=== PATIENT | female | born 1955 | race Caucasian/White ===

== ENCOUNTER → 2017-01-16 | Outpatient (CLI) | payer BC | LOC: MC.RAD 11:10 | DX: Z12.31 Encounter for screening mammogram for malignant neoplasm of breast (principal) ==

== ENCOUNTER → 2018-01-05 | Outpatient (CLI) | payer BC | LOC: COL.RAD 07:20 | DX: R10.13 Epigastric pain (principal); N28.1 Cyst of kidney, acquired; N20.0 Calculus of kidney | CPT/HCPCS: J7050; Q9967 ==

== ENCOUNTER → 2018-03-02 | Outpatient (CLI) | payer BC | LOC: MC.RAD 10:42 | DX: Z12.31 Encounter for screening mammogram for malignant neoplasm of breast (principal) ==

== ENCOUNTER → 2019-04-24 | Outpatient (CLI) | payer MEDICARE, OTHER | LOC: MC.RAD 03-20 09:30 | DX: Z12.31 Encounter for screening mammogram for malignant neoplasm of breast (principal) ==

== ENCOUNTER → 2020-06-02 | Outpatient (CLI) | payer MEDICARE, OTHER | LOC: MC.RAD 15:22 | DX: Z12.31 Encounter for screening mammogram for malignant neoplasm of breast (principal) ==

== ENCOUNTER 2020-09-30 17:25 | Emergency (ER) | payer MEDICARE, OTHER ==
[~2020-09-30] VITALS: Ht 167.6 cm; Wt 77.3 kg
[2020-09-30 17:37] VITALS: BP 152/94; TEMP 98.3
[2020-09-30 17:57] LABS: BASO % 0.5 % (0.0-2.0); EOS # 0.2 (0.0-0.7); EOS % 2.1 % (0-4.0); GRAN # 4.8 (1.4-6.5); GRAN % 61.7 % (42.2-75.2); HEMATOCRIT 38.5 % (37.0-47.0); HEMOGLOBIN 13.1 g/dl (12.5-16.0); LYMPH # 2.2 (1.2-3.4); LYMPH % 28.2 % (20.0-51.0); MEAN CELL VOLUME 87 fl (80.0-100.0); MEAN CORPUSCULAR HEMOGLOBIN 30 pg (27.0-31.0); MEAN CORPUSCULAR HGB CONC 34 g/dl (33.0-37.0); MEAN PLATELET VOLUME 9.2 fl (7.4-10.4); MONO # 0.6 (0.1-0.6); MONO % 7.1 % (1.7-9.3); PLATELET COUNT 368 K/mm3 (130-400); RED BLOOD COUNT 4.44 M/mm3 (4.10-5.30); REDCELL DISTRIBUTION WIDTH-CV 12.6 % (11.5-14.5)
[2020-09-30 18:04] LABS: ALANINE AMINOTRANSFERASE 34 U/L (4-34); ALBUMIN 4.5 gm/dL (3.5-5.0); ALKALINE PHOSPHATASE 95 U/L (50-136); ANION GAP 12 mmol/L (7-16); AST,SGOT 30 U/L (15-37); BILIRUBIN,TOTAL 0.7 mg/dL (0.0-1.0); BLOOD UREA NITROGEN 22 mg/dL (7-17); CALCIUM 9.3 mg/dL (8.4-10.2); CARBON DIOXIDE 24 mmol/L (22-30); CHLORIDE 106 mmol/L (98-107); CREATININE, serum 0.84 (0.52-1.25); GLUCOSE 110 mg/dL (74-106); POTASSIUM 3.1 mmol/L (3.4-5.0); SODIUM 141 mmol/L (137-145); TOTAL PROTEIN 7.6 gm/dL (6.4-8.2)
[2020-09-30 18:39] LABS: COLLECTION METHOD CLEAN CATCH
[2020-09-30 18:46] LABS: C-REACTIVE PROTEIN < 0.5 mg/dL (0.0-0.9)
[2020-09-30 18:49] LABS: MUCOUS Present /lpf; PH 5 (5-8); URINE APPEARANCE Cloudy; URINE BACTERIA None Seen /hpf; URINE BILIRUBIN Negative (NEGATIVE); URINE BLOOD 3+ (NEGATIVE); URINE CALCIUM OXALATE CRYSTAL Present /hpf; URINE COLOR Amber; URINE GLUCOSE Negative (NEGATIVE); URINE KETONE 1+ (NEGATIVE); URINE LEUKOCYTE ESTERASE Trace (NEGATIVE); URINE NITRATE Negative (NEGATIVE); URINE PROTEIN(semi-quant) 2+ (NEGATIVE); URINE RBC >50 /hpf; URINE UROBILINOGEN Negative (NEGATIVE)
[2020-09-30] MEDS ORDERED: CEFTIN 250250 MG/TAB PO (20:12)
[2020-09-30 20:20] VITALS: PULSE 71
== END 2020-09-30 20:20 | disposition home or self-care (01) ==
LOC: COL.ER 17:25
PROVIDERS: Nurse Practitioner
DX: N39.0 Urinary tract infection, site not specified (principal); N20.0 Calculus of kidney
CPT/HCPCS: J0696; J1885; J2405; J7030; Q9967

== ENCOUNTER 2021-02-17 08:44 | Day surgery (SDC) | payer MEDICARE, OTHER ==
[~2021-02-17] VITALS: Ht 167.6 cm; Wt 114.5 kg
[~2021-02-17 08:44] MED LIST: CEFTIN 250250 MG/TAB PO
[2021-02-17] MEDS ORDERED: FOSAMAX 10M10 MG/TAB PO (09:14)
[2021-02-17] MEDS ORDERED: VITAMIN D31000 I1 PO (09:16)
[2021-02-17] MEDS ORDERED: MASON NATURAL2000 IU PO (09:20)
[2021-02-17 09:49] VITALS: BP 120/74; PULSE 73; TEMP 97.9
[2021-02-17 10:55] VITALS: BP 115/83; PULSE 63; TEMP 97.3
[2021-02-17 11:00] VITALS: BP 115/76; PULSE 63
[2021-02-17 11:15] VITALS: BP 112/80; PULSE 68
[2021-02-17 11:30] VITALS: BP 114/79; PULSE 66
--- NOTE | 2021-02-17 11:40 | NUR ---
1055 Pt returns from Endo procedure via cart. Pt ambulates from cart to recliner with RN assist. Pt denies pain or nausea, and pt alert and oriented. Monitors on and alarms set. Call light within reach. Report received from Tram. Pt requests Sprite and saltines. Dr. Garrison arrives to visit with pt and . brought to room to visit with Dr. Garrison. 1110 Dr. Garrison finished visiting with pt and . Pt taking food and drink well and states "ready for discharge." 1135 Discharge instructions given to pt and . All questions answered to their satisfaction. Handed to them are a thank you card and all discharge information and procedural photos. 1140 Pt transferred out of hospital via wheelchair and this RN to private vehicle driven by .
== END 2021-02-17 11:40 | disposition home or self-care (01) ==
LOC: SDCO 08:44
DX: Z12.11 Encounter for screening for malignant neoplasm of colon (principal); K29.50 Unspecified chronic gastritis without bleeding; D12.5 Benign neoplasm of sigmoid colon; K29.80 Duodenitis without bleeding; K21.9 Gastro-esophageal reflux disease without esophagitis; K62.89 Other specified diseases of anus and rectum; K44.9 Diaphragmatic hernia without obstruction or gangrene; E78.5 Hyperlipidemia, unspecified; M81.0 Age-related osteoporosis without current pathological fracture; D50.9 Iron deficiency anemia, unspecified; M19.90 Unspecified osteoarthritis, unspecified site; Z79.899 Other long term (current) drug therapy; Z90.89 Acquired absence of other organs; Z98.890 Other specified postprocedural states
CPT/HCPCS: J2704; J3010; J7030

== ENCOUNTER → 2021-09-14 | Outpatient (CLI) | payer MEDICARE, OTHER ==
[~2021-09-14] MED LIST changes: +FOSAMAX 10M10 MG/TAB PO; +MASON NATURAL2000 IU PO; +VITAMIN D31000 I1 PO
== END ==
LOC: MC.RAD 08:34
DX: Z12.31 Encounter for screening mammogram for malignant neoplasm of breast (principal)

== ENCOUNTER → 2023-02-09 | Outpatient (CLI) | payer MEDICARE, OTHER | LOC: MC.RAD 12:48 | DX: N60.02 Solitary cyst of left breast (principal) ==

== ENCOUNTER 2023-12-24 21:50 | Emergency (ER) | payer MEDICARE ==
[~2023-12-24] VITALS: Ht 167.6 cm; Wt 78.2 kg
[2023-12-24 21:52] VITALS: TEMP 98.9
[2023-12-24 23:12] LABS: BASO % 0.2 % (0.0-2.0); EOS % 0.1 % (0.0-4.0); GRAN # 7.5 K/mm3 (1.4-6.5); GRAN % 88.5 % (42.2-75.2); HEMOGLOBIN 12.3 g/dl (12.5-16.0); LYMPH # 0.6 K/mm3 (1.2-3.4); MEAN CELL VOLUME 88 fl (80.0-100.0); MEAN CORPUSCULAR HEMOGLOBIN 30 pg (27-31); MEAN CORPUSCULAR HGB CONC 34 g/dl (33.0-37.0); MEAN PLATELET VOLUME 9.7 fl (7.4-10.4); MONO # 0.3 K/mm3 (0.1-0.6); MONO % 3.1 % (1.7-9.3); PLATELET COUNT 205 K/mm3 (130-400); RED BLOOD COUNT 4.12 M/mm3 (4.10-5.30); REDCELL DISTRIBUTION WIDTH-CV 12.7 % (11.5-14.5)
[2023-12-24] MEDS ORDERED: NS 1,000 ML IV ONE ×2 (23:15→23:45)
[2023-12-24] MEDS ORDERED: fentaNYL 50 MCG/ML 2 ML VIAL IV ONE (23:15)
[2023-12-24] MEDS ORDERED: diphenhydrAMINE 50 MG/ML 1 ML VIAL IV ONE (23:15)
[2023-12-24 23:18] LABS: HEMATOCRIT 36.2 % (37.0-47.0)
[2023-12-24 23:26] LABS: ALBUMIN 3.7 gm/dL (3.4-4.8); CREATININE, serum 1.21 mg/dL (0.57-1.11); TOTAL PROTEIN 6.9 gm/dL (6.2-8.1)
[2023-12-24 23:37] LABS: TROPONIN-I 0.128 ng/mL (0.00-0.033)
[2023-12-24] MEDS ORDERED: Potassium Bicarbonate/Citrate 20 MEQ Effervescent TAB PO ONE (23:45)
[2023-12-25 00:35] LABS: ARTERIAL BLD GAS O2 SATURATION 91.5 % (92-100); ARTERIAL BLD GAS TCO2 CT 19.3; ARTERIAL BLOOD GAS BASE EXCESS -4.9 (-2-2); ARTERIAL BLOOD GAS HCO3 18.4 meq/L (22-26); ARTERIAL BLOOD GAS PCO2 28.7 mmHg (35-45); ARTERIAL BLOOD GAS pH 7.43 (7.35-7.45)
[2023-12-25] MEDS ORDERED: Iohexol 300 - 100 ML VIAL IV ONE (01:08)
[2023-12-25] MEDS ORDERED: Heparin/D5W 250 ML IV SCH (02:15)
[2023-12-25] MEDS ORDERED: Heparin 5,000 UNITS/ML 1 ML VIAL IV PRN (02:15)
[2023-12-25] MEDS ORDERED: Heparin 5,000 UNITS/ML 1 ML VIAL IV ONE (02:15)
[2023-12-25 02:20] LABS: COLLECTION METHOD CLEAN CATCH
[2023-12-25 02:34] LABS: PH 5.5 (5.0-8.5); URINE APPEARANCE Clear (CLEAR/HAZY); URINE BLOOD 2+ (NEGATIVE); URINE COLOR Yellow (YELLOW); URINE GLUCOSE Negative (NEGATIVE); URINE KETONE TRACE (NEGATIVE); URINE NITRATE Negative (NEGATIVE); URINE PROTEIN(semi-quant) TRACE (NEGATIVE); URINE UROBILINOGEN 0.2 E.U/dL (0.2-1.0)
[2023-12-25 02:40] LABS: AMORPHOUS CRYSTAL Present (NOT PRESENT); SQUAMOUS EPITHELIAL 0-2 /hpf (0-10)
[2023-12-25 02:41] LABS: URINE BACTERIA Rare /hpf (NONE SEEN)
[2023-12-25 04:04] VITALS: BP 114/70; PULSE 76
== END 2023-12-25 04:12 | disposition short-term general hospital (02) ==
LOC: COL.ER 21:50
PROVIDERS: Internal Medicine
DX: A41.9 Sepsis, unspecified organism (principal); R65.21 Severe sepsis with septic shock; I24.9 Acute ischemic heart disease, unspecified; H81.399 Other peripheral vertigo, unspecified ear
CPT/HCPCS: J1200; J1644; J2543; J3010; J7030; J7060; Q9967